=== PATIENT | female | born 1980 | race African-American/Black ===

== ENCOUNTER 2017-01-24 09:45 | Emergency (ER) | payer MEDICAID ==
--- NOTE | 2017-01-24 11:34 | ED Physician Chart ---
Chief Complaint/HPI - Patient Information Date Seen:: 01/24/17 Time Seen:: 10:00 History of Present Illness:: History of present illness: Patient states that for 1 week she has had intermittent substernal chest pain and occasional shortness of breath. Patient states that this pain became worse last night while lying in bed. The pain is dull, nonradiating, associated with shortness of breath but otherwise there are no other symptoms, specifically no nausea vomiting diaphoresis lightheadedness. The patient is a nonsmoker, does not use control, and has no previous history of thromboembolic disease, and has no family history of thromboembolic disease, or thoracic artery dissection. Patient denies use of methamphetamine or cocaine or recent use of [id number] decongestants or diet pills. Family history is negative for heart disease. Past medical history is unremarkable for hypertension, heart disease, diabetes and the patient is midcycle in her menstrual period. Allergies:: Allergies Allergy/AdvReac Type Severity Reaction Status Date / Time No Known Allergies Allergy Verified 01/24/17 09:55 Vitals:: Vital Signs - 8 hr 01/24/17 09:45 Temp 98.6 F HR 82 RR 16 BP 128/94 O2 Sat % 100 Historian:: Patient Review:: Nurse's Note Reviewed Review of Systems - Review of Systems General/Constitutional: No fever (the review of systems is completely negative except for those things already mentioned in the history of present illness.) Past Medical History - Past Medical History Obtainable: Yes Past Medical History: No significant medical hx Family History: None Social History: Non Smoker, No Drug Use Surgical History: None Psychiatricy History: None Medication: None (please under history of present illness for (comments on add hx.) Family Medical History - Family Member Father History Unknown: Yes Ethnicity: Non- Hx Family COPD: Yes Other Medical History: denies family medical history Physical Exam - Physical Examination General/Constitutional: Awake, Well-developed, well-nourished, Alert, No distress, GCS 15, Non-toxic appearing, Ambulatory Head: Atraumatic Eyes: Lids, conjuctiva normal, PERRL, EOMI Skin: No rash, No skin lesions Neck: Nontender Respiratory: Nl effort/Exclusion, Clear to Auscultation, No Wheeze/Rhonchi/Rales Cardio Vascular: RRR, No murmur, gallop, rubs, NL S1 S2, Carotid/Femoral/Distal pulses equal bilaterally : No CVA tenderness Neuro/Psych: Alert/oriented, DTR's symmetric, Normal motor strength, Judgement/ insight normal, No focal deficits Misc: Normal back (the vital signs were normal except for mild hypertension, examination of the chest wall is remarkable for a very small subcutaneous mobile soft slightly tender mass above the midline of the left breast. No other chest or breast abnormalities were noted. The patient states that the tender breast mass is the chest pain which she has been complaining about.) Labs/Radiology/EKG Results - Lab Results Results: Laboratory Tests 01/24/17 10:25 D-Dimer 378 - EKG Interpretations Comments:: The EKG was reviewed by me and is remarkable for normal sinus rhythm at a rate of 77, inverted T waves in leads 3 and V1, there is no evidence of Brugada pattern or right heart strain, and there are no prior EKGs available for comparison. Assessment - Assessment General Assessment: Diagnosis: Chest pain, mildly tender chest wall mass. Mild hypertension. Shortness of breath, uncharacterized. There is no clinical evidence or laboratory suggestion of moderate embolus. ED Septic Shock - . Is Septic Shock (SBP<90, OR Lactate>4 mmol\\L) present?: No - <6hrs of presentation: Vital Signs: Vital Signs - 8 hr 01/24/17 09:45 Temp 98.6 F HR 82 RR 16 BP 128/94 O2 Sat % 100 Reassessment (Disposition) - Reassessment Reassessment Condition:: Improved - Diagnosis Diagnosis:: #1 has pain secondary to small left chest wall mass #2 mild hypertension #3 for severe breath," uncharacterized - Aftercare/Follow up Instructions Aftercare/Follow-Up Instructions:: Counseled pt regarding lab results/diagnosis & need follow up, Refer to Discharge Instructions - Patient Disposition Discharge/Transfer:: Home ED Discharge Plan - Patient Disposition Admit/Discharge/Transfer: PT DISCHARGED HOME Condition at Disposition: Stable Instructions: Chest Wall Pain, [id number] Additional Instructions: Follow up with primary doctor within 2-3 day.
== END 2017-01-24 11:44 | disposition home or self-care (01) ==
LOC: ER 09:45
DX: R07.89 Other chest pain (principal); R06.02 Shortness of breath; I10 Essential (primary) hypertension
CPT/HCPCS: 36415-UA; 85379-TC; 93005